=== PATIENT | female | born 1970 | race Caucasian/White ===

== ENCOUNTER 2024-02-24 12:36 | Emergency (ER) | payer BC, OTHER ==
--- NOTE | 2024-02-24 13:07 | ERPHSYRPT ---
- History of Present Illness Time Seen by Provider: 02/24/24 13:00 Source: patient Exam Limitations: no limitations Physician History: 54yo f presents for mechanical fall on ice, presenting w/ right sided back and shoulder pain. Pt reports she fell directly onto her right shoulder. Pt has hx of multiple shoulder surgeries in past, is currently undergoing chemotherapy for breast cancer. Pt reports her pain is worst directly under the right shoulder blade, denies any cp, sob, pain in the elbow or wrist. Occurred: this morning Reason for Fall: slipped Injuries/Pain Location: back, upper Loss of Consciousness: no loss of consciousness Quality: sharpness Severity of Pain-Max: moderate Severity of Pain-Current: moderate Modifying Factors: Improves With: nothing Associated Symptoms (Fall): back pain, No abdominal pain, No confusion, No chest pain, No dizziness, No extremity injury, No headache, No lightheadedness, No neck pain, No shortness of breath, No slurred speech Allergies/Adverse Reactions: morphine Allergy (Intermediate, Verified 02/24/24 13:09) Hives Penicillins Allergy (Intermediate, Verified 02/24/24 13:09) Hives codeine Allergy (Verified 02/24/24 13:09) Home Medications: Aspirin EC 81 mg [Ecotrin 81 mg] 81 mg PO DAILY 04/01/21 [History] Citalopram Hydrobromide 20 mg* [ceLEXa 20 MG] 20 mg PO DAILY 04/01/21 [History] Lisinopril 20 mg [Zestril 20 MG] 20 mg PO DAILY 04/01/21 [History] Loratadine 10 mg [Claritin 10 mg] 10 mg PO DAILY 04/01/21 [History] Semaglutide [Ozempic] 0.5 mg SQ WEEKLY 04/01/21 [History] hydroCHLOROthiazide [Hydrochlorothiazide] 12.5 mg PO DAILY 04/01/21 [History] - Review of Systems Constitutional: No Symptoms Respiratory: No Symptoms Cardiac: No Symptoms Abdominal/Gastrointestinal: No Symptoms Musculoskeletal: Back Pain, Fall, Injury, No Deformity, No Joint Redness, No Joint Pain Skin: No Symptoms - Nursing Vital Signs Nursing Vital Signs: Initial Vital Signs Temperature 98 F 02/24/24 12:47 Pulse Rate 79 02/24/24 12:47 Respiratory Rate 20 02/24/24 12:47 Blood Pressure 127/81 02/24/24 12:47 O2 Sat by Pulse Oximetry 94 L 02/24/24 12:47 Pain Scale Pain Intensity 3 - [place] Coma Score Best Eye Response ([place]): (4) open spontaneously Best Verbal Response ([place]): (5) oriented Best Motor Response ([place]): (6) obeys commands Alanis Total: 15 - Physical Exam General Appearance: no apparent distress, alert Head Injury: no evidence of injury Neck Exam: supple, full range of motion, normal alignment, normal inspection Respiratory/Chest Exam: normal breath sounds, No chest tenderness, No respiratory distress, No crepitus, No decreased breath sounds Cardiovascular Exam: normal heart sounds, regular rate/rhythm Back Exam: point tenderness (right lateral scapula TTP, no obvious bruising/swelling), No CVA tenderness, No vertebral tenderness Extremity Exam: normal inspection, normal range of motion, No deformities, No lacerations Neurologic Exam: alert, oriented x 3, cooperative, normal mood/affect, nml cerebellar function, nml station & gait, sensation nml, No motor deficits, No sensory deficit Skin Exam: normal color SpO2 Interpretation: normal SpO2: 94 O2 Delivery: Room Air Ordered Tests: Active Orders 24 hr Category Date Time Status CHEST 2 VIEWS (PA AND LAT) Stat Exams 02/24/24 13:08 Taken RIBS UNILATERAL Stat Exams 02/24/24 13:09 Taken SHOULDER Stat Exams 02/24/24 13:08 Taken Medication Summary Discontinued Medications Generic Name Dose Route Start Last Admin Trade Name Reji PRN Reason Stop Dose Admin Acetaminophen 975 mg 02/24/24 13:07 02/24/24 13:31 Acetaminophen 325 Mg Tablet PO 02/24/24 13:08 975 mg STAT ONE Administration Acetaminophen Confirm 02/24/24 13:30 Acetaminophen 325 Mg Tablet Administered 02/24/24 13:31 Dose 975 mg .ROUTE .STK-MED ONE - Progress Progress: improved Progress Note: 02/24/24 15:06 CXR showed no acute process shoulder xr showed no acute fracture xr right ribs showed no acute rib fx likely muscle strain vs sprain of upper back musculature plan for discharge home w/ PCP follow up this week (Arina) recommend using tylenol for discomfort recommend ice/heat for discomfort/swelling, gentle stretches as tolerated return to ED if: develop unbearable pain, develop chest pain or trouble breathing, develop inability to use the right upper extremity Counseled pt/family regarding: diagnosis, need for follow-up, rad results Medical Desision Making - Diagnostic Testing Diagnostic test were ordered, analyzed, and reviewed by me: Yes Radiological Interpretation: Interpreted by me, Reviewed by me - Risk of complications Minimal Risk: Minimal risk of morbidity - Departure Departure Disposition: Home Clinical Impression: Upper back pain on right side, Fall on ice Condition: Stable Critical Care Time: No Referrals: JUDITH COX MD [Primary Care Provider] - Follow up/PCP as directed Additional Instructions: likely muscle strain vs sprain of upper back musculature plan for discharge home w/ PCP follow up this week (Arina) recommend using tylenol for discomfort recommend ice/heat for discomfort/swelling, gentle stretches as tolerated return to ED if: develop unbearable pain, develop chest pain or trouble breathing, develop inability to use the right upper extremity
[2024-02-24 13:09] VITALS: RESP 20; TEMP 98
[2024-02-24] MEDS ORDERED: TYLENOL 325 MG ONE (13:30)
[2024-02-24] MEDS: TYLENOL 325 MG PO ONE (13:31)
[2024-02-24 14:12] VITALS: PULSE 78
[2024-02-24 15:16] VITALS: BP 125/79; O2SAT 98
--- NOTE | 2024-02-24 20:10 | XRAY ---
Indication: Pain following fall. Comparison: None 3 view right shoulder demonstrates osteopenia, right mid lung calcified granuloma, incompletely visualized left central venous access catheter, and right chest wall surgical clips. No acute bony, articular, or soft tissue abnormalities.
--- NOTE | 2024-02-24 20:12 | XRAY ---
Indication: Right rib pain following fall. Comparison: None 2 view right ribs demonstrates osteopenia, right midlung calcified granuloma, left Port-A-Cath, and right chest wall surgical clips. No acute bony, articular, or soft tissue abnormalities.
--- NOTE | 2024-02-24 20:14 | XRAY ---
Indication: Pain right rib pain following fall. Comparison: December 25, 2017 PA/lateral chest again demonstrates normal heart and lungs with a few incidental tiny calcified granulomas. New left Port-A-Cath. Bony thorax intact again with mild degenerative changes and new right chest surgical clips. Impression: Again nonacute chest with chronic features.
== END 2024-02-24 15:19 | disposition home or self-care (01) ==
LOC: ED 12:36
DX: M54.6 Pain in thoracic spine (principal); W00.0XXA Fall on same level due to ice and snow, initial encounter; M25.511 Pain in right shoulder; Z79.85 Long-term (current) use of injectable non-insulin antidiabetic drugs; Z79.899 Other long term (current) drug therapy
CPT/HCPCS: 71046; 71100; 73030; 99282; 99284; A9270-GY